=== PATIENT | male | born 1965 | race Caucasian/White ===

== ENCOUNTER 2017-07-21 17:35 | Observation (INO) | payer OTHER ==
[~2017-07-21] VITALS: Ht 182.9 cm; Wt 111.4 kg
[~2017-07-21 17:35] MED LIST: AMOXICILLIN500 MG PO; ASPIRIN81 MG PO; BACLOFEN10 MG PO; BUSPIRONE10 MG PO; LIPITOR40 MG PO; LOPRESSOR 550 MG/TAB PO; LYRICA25 MG PO; METHOCARBAM500 MG PO; PERCOCET 5/325M1 TAB PO; SIMVASTATIN40 MG PO; TRAMADOL HCL50 MG PO; ZESTRIL10 MG PO
--- NOTE | 2017-07-21 17:35 | NUR ---
PT TO ROOM 14 VIA EMS. PT ABLE TO TRANSFER TO ER STRETCHER WITHOUT ASSIST.
[2017-07-21 17:53] LABS: HEMATOCRIT 43.1 % (39.0-50.0); HEMOGLOBIN 14.8 g/dl (14.0-18.0); IMMATURE GRANULOCYTES 0.3 % (0.0-1.0); MEAN CELL VOLUME 93.5 fL CALC (80.0-100.0); MEAN CORPUSCULAR HGB 32.1 pG CALC (26.0-32.0); MEAN CORPUSCULAR HGB CONC 34.3 g/L CALC (32.0-36.0); NEUT# 4.31 thou/uL (1.82-7.42); RED BLOOD COUNT 4.61 mill/uL (4.70-6.10); RED CELL DISTRI WIDTH 13.5 % (11.5-15.5)
[2017-07-21 18:08] LABS: ANION GAP 16 (6-22 (CALC)); BUN 14 mg/dL (9-20); BUN/CREATININE RATIO 16 (12-20 (CALC)); CARBON DIOXIDE 23 mmol/l (22-30); CHLORIDE 105 mmol/l (95-108); CREATININE 0.9 mg/dL (0.7-1.3); GFR > 60 ML/MIN (>=60 (CALC)); GFR FOR AFR.AMER. > 60 ML/MIN (>=60 (CALC)); POTASSIUM 4.2 mmol/l (3.5-5.1); SODIUM 139 mmol/l (137-146)
[2017-07-21] MEDS ORDERED: SERTRALINE25 MG PO (19:09)
[2017-07-21] MEDS ORDERED: SEROQUEL25 MG PO (19:09)
--- NOTE | 2017-07-21 19:15 | NUR ---
PT AWARE OF PENDING ADMISSION, PROVIDED SANDWICH. NO COMPLAINTS OF CHEST PAIN OR SHORTNESS OF BREATH.
--- NOTE | 2017-07-21 19:39 | NUR ---
PT TAKEN TO ROOM 271 WITHOUT INCIDENT, REPORT WAS TO NADER.
[2017-07-21 20:00] VITALS: BP 115/69; BP 124/79
--- NOTE | 2017-07-21 20:00 | NUR ---
PT.ARRIVED TO THE FLOOR VIA WC ACCOMPANIED BY [facility]ALEARN OF THE ED. PT.APPEARS TO BE IN STABLE CONDITION, SELF AMBULATED TO STANDING SCALE AND TO BED. PT.IS WALKING AROUND THE ROOM AT THIS TIME AND REPORTS THAT HE HAS A HISTORY OF FALLS STATING THAT HIS "KNEES AND LEGS JUST GIVE OUT W/OUT NOTICE." I EXPLAINED TO THE PT.THAT WE NEED HIM TO CALL IF HE NEEDS TO AMBULATE FOR FALL PRECAUTIONS. HE REPORTS THAT HE NEEDS TO STAND AND MOVE AROUND AT TIMES FOR COMFORT OF BACK AND LEGS. I INSTRUCTED PT.TO CALL IF HE FEELS HE NEEDS TO GET UP. PT.ASSESSED, V/S ASSESSED AND ORIENTED TO ROOM,CALL SYSTEM, LIGHTS, TV AND BED. PROVIDED SNACK REQUESTED AND WATER PO. CALL LIGHT AT SIDE.
--- NOTE | 2017-07-21 22:16 | NUR ---
ENTERED ROOM TO ADMINISTER MEDICATIONS ORDERED AND PT.WAS POINTING TO HIS LEFT ARM. HE WAS BLEEDING FROM HIS IV SITE. I PROCEEDED TO CLEAN IT UP AND REDRESS THE SITE, IT WAS A LOOSE HUB ONLY. PT.WAS INSTRUCTED TO CALL IF HE HAD ANY FURTHER TROUBLE WITH IT OR NOTICED ANYMORE BLEEDING FROM SITE. MEDICATIONS ADMINISTERED ORDERS PROVIDE. DENIES ANY OTHER NEEDS AT THIS TIME. CALL LIGHT W/IN REACH. DENIES ANY PAIN, NO S/S OF DISTRESS.
--- NOTE | 2017-07-21 23:27 | NUR ---
PT.CALLED TO ASK FOR FOOD AND COKE/SNACK PROVIDED.
[2017-07-22] VITALS: BP 100/64
[2017-07-22 04:00] VITALS: BP 100/63
--- NOTE | 2017-07-22 04:00 | NUR ---
PT.AWOKE TO OUR VOICES UPON ENTERING ROOM. PT.APPEARED TO BE SLEEPING. V/S ASSESSED AND PT.ASSISTED TO RESTROOM AND BACK TO BED. PT.DENIES ANY PAIN OR NEEDS AT THIS TIME. CALL LIGHT W/IN REACH
--- NOTE | 2017-07-22 04:15 | NUR ---
PT.AWOKE TO OUR ENTERING THE ROOM. ASSISTED PT.TO RESTROOM AND BACK TO BED. V/S ASSESSED. PT.DENIES ANY OTHER NEEDS AT THIS TIME. CALL LIGHT W/IN REACH
--- NOTE | 2017-07-22 07:05 | NUR ---
REPORT RECEIVED FROM CAIT DOE;PT APPEARS TO BE SLEEPING IN RIGHT SIDE LAYING POSITION;RESPIRATIONS EVEN AND UNLABORED ON RA;NO S/S OF DISTRESS NOTED;TELE MONITOR IN PLACE;FALL PRECAUTIONS;BED IN THE LOWEST POSITION WITH CALL LIGHT IN REACH;WILL CONTINUE TO MONITOR
[2017-07-22 08:24] VITALS: BP 93/66
--- NOTE | 2017-07-22 08:30 | NUR ---
PT RESTING IN SUPINE POSITION;VS OBTAINED AND ASSESSMENT COMPLETED;RESPIRATIONS EVEN AND UNLABORED ON RA,CLEAR LUNG SOUNDS;ABDOMEN SOFT ON PALPATION AND ACTIVE IN ALL 4 QUADRANTS;STRONG PEDAL PULSES;SKIN INTACT;#20G TO RAC FLUSHED AND PATENT,SITE APPEARS HEALTHY;TELE MONITOR IN PLACE;PT DENIES ANY CHEST PAIN,PAIN SCALE AND REPORTING RE-EDUCATED;PT DENIES ANY CURRENT NEEDS AT THIS TIME;ENCOURAGED TO CALL FOR ASSISTANCE IF NEEDED;FALL PRECAUTIONS IN PLACE;ENCOURAGED TO CALL FOR ASSISTANCE IF NEEDED;CALL LIGHT IN REACH;WILL CONTINUE TO MONITOR
[2017-07-22 11:00] VITALS: BP 101/62
--- NOTE | 2017-07-22 11:19 | NUR ---
PT RESTING IN SUPINE POSITION WATCHING TV;DENIES ANY PAIN OR NEEDS;RESPIRATIONS REMAIN EVEN AND UNLABORED ON RA;TELE MONITOR IN PLACE;ENCOURAGED TO CALL FOR ASSISTANCE IF NEEDED;CALL LIGHT IN REACH;WILL CONTINUE TO MONITOR
--- NOTE | 2017-07-22 14:30 | NUR ---
PT AND WRITTER DICUSSED D/C;ALL QUESTIONS ANSWERED;IV SITE REMOVED WITH CATHETER INTACT;PT DENIES ANY CURRENT NEEDS AND REFUSES WC FOR D/C
--- NOTE | 2017-07-22 14:32 | NUR ---
Discharge instructions given. Patient verbalizes understanding of same. Discharged in stable condition via Ambulatory to Home with . All belongings sent with pt.
== END 2017-07-22 14:34 | disposition home or self-care (01) | DRG 313 ==
LOC: ED 17:35 → ED-I 18:07 → ED 18:07 → ED-I 18:27 → ED 18:40 → MS2 18:41
PROVIDERS: Family Medicine; ADMIT Internal Medicine; ATTEND Internal Medicine
DX: R07.9 Chest pain, unspecified (principal); I25.10 Atherosclerotic heart disease of native coronary artery without angina pectoris; E78.5 Hyperlipidemia, unspecified; I10 Essential (primary) hypertension; I25.2 Old myocardial infarction; F32.9 Major depressive disorder, single episode, unspecified; F41.9 Anxiety disorder, unspecified; F43.10 Post-traumatic stress disorder, unspecified; G89.29 Other chronic pain; M54.5 Low back pain; F17.210 Nicotine dependence, cigarettes, uncomplicated; Z95.5 Presence of coronary angioplasty implant and graft

== ENCOUNTER 2018-04-14 08:03 | Emergency (ER) | payer MEDICARE ==
[~2018-04-14] VITALS: Ht 182.9 cm; Wt 108.0 kg
[~2018-04-14 08:03] MED LIST changes: +SEROQUEL25 MG PO; +SERTRALINE25 MG PO
[2018-04-14 08:24] LABS: HEMATOCRIT 44.4 % (39.0-50.0); HEMOGLOBIN 15.2 g/dl (14.0-18.0); IMMATURE GRANULOCYTES 0.4 % (0.0-5.0); MEAN CELL VOLUME 91.9 fL CALC (80.0-100.0); MEAN CORPUSCULAR HGB 31.5 pG CALC (26.0-32.0); MEAN CORPUSCULAR HGB CONC 34.2 g/L CALC (32.0-36.0); NEUT# 3.21 thou/uL (1.82-7.42); RED BLOOD COUNT 4.83 mill/uL (4.70-6.10); RED CELL DISTRI WIDTH 13.4 % (11.5-15.5)
[2018-04-14 08:41] LABS: INTERNATIONAL NORMALIZED RATIO 0.9 RATIO (0.7-1.3); PROTHROMBIN TIME 9.8 SECONDS (9.0-12.5)
[2018-04-14 08:43] LABS: ANION GAP 15 (6-22 (CALC)); BUN 13 mg/dL (9-20); BUN/CREATININE RATIO 17 (12-20 (CALC)); CARBON DIOXIDE 25 mmol/l (22-30); CHLORIDE 104 mmol/l (95-108); CREATININE 0.8 mg/dL (0.7-1.3); GFR > 60 ML/MIN (>=60 (CALC)); GFR FOR AFR.AMER. > 60 ML/MIN (>=60 (CALC)); POTASSIUM 4.4 mmol/l (3.5-5.1); SODIUM 140 mmol/l (137-146)
[2018-04-14 09:32] VITALS: BP 147/87
== END 2018-04-14 09:34 | disposition short-term general hospital (02) ==
LOC: ED 08:03
PROVIDERS: Family Medicine
DX: I20.0 Unstable angina (principal); I10 Essential (primary) hypertension; F17.210 Nicotine dependence, cigarettes, uncomplicated; Z95.1 Presence of aortocoronary bypass graft; Z95.5 Presence of coronary angioplasty implant and graft; I25.2 Old myocardial infarction; M79.602 Pain in left arm; M79.601 Pain in right arm; R11.0 Nausea; R94.31 Abnormal electrocardiogram [ECG] [EKG]

== ENCOUNTER 2019-12-12 11:01 | Emergency (ER) | payer OTHER, MEDICARE ==
[~2019-12-12] VITALS: Ht 182.9 cm; Wt 105.0 kg
[2019-12-12 11:47] LABS: HEMATOCRIT 43.8 % (39.0-50.0); HEMOGLOBIN 14.4 g/dl (14.0-18.0); IMMATURE GRANULOCYTES 0.2 % (0.0-5.0); MEAN CELL VOLUME 92.2 fL CALC (80.0-100.0); MEAN CORPUSCULAR HGB 30.3 pG CALC (26.0-32.0); MEAN CORPUSCULAR HGB CONC 32.9 g/dL CAL (32.0-36.0); NEUT# 3.02 thou/uL (1.82-7.42); RED BLOOD COUNT 4.75 mill/uL (4.70-6.10); RED CELL DISTRI WIDTH 13.2 % (11.5-15.5)
[2019-12-12 12:02] LABS: ANION GAP 11 (6-22 (CALC)); BUN 9 mg/dL (9-20); BUN/CREATININE RATIO 16 (12-20 (CALC)); CARBON DIOXIDE 24 mmol/l (22-30); CHLORIDE 106 mmol/l (95-108); CREATININE 0.6 mg/dL (0.7-1.3); GFR > 60 ML/MIN (>=60 (CALC)); GFR FOR AFR.AMER. > 60 ML/MIN (>=60 (CALC)); POTASSIUM 4.1 mmol/l (3.5-5.1); SODIUM 136 mmol/l (137-146)
[2019-12-12] MEDS ORDERED: LIPITOR80 M1 PO (13:03)
[2019-12-12] MEDS ORDERED: OLMESARTAN MEDO20 MG (13:04)
[2019-12-12 14:13] VITALS: BP 114/67
== END 2019-12-12 14:15 | disposition short-term general hospital (02) | DRG 311 ==
LOC: ED 11:01
PROVIDERS: Family Medicine
DX: I20.0 Unstable angina (principal); I10 Essential (primary) hypertension; I25.2 Old myocardial infarction; F17.200 Nicotine dependence, unspecified, uncomplicated; Z95.5 Presence of coronary angioplasty implant and graft
CPT/HCPCS: J1644

== ENCOUNTER 2020-09-08 12:10 | Emergency (ER) | payer OTHER, MEDICARE ==
[~2020-09-08] VITALS: Ht 182.9 cm; Wt 113.0 kg
[~2020-09-08 12:10] MED LIST changes: +LIPITOR80 M1 PO; +OLMESARTAN MEDO20 MG
[2020-09-08] MEDS ORDERED: LISINOPRIL2.5 MG PO (12:42)
[2020-09-08] MEDS ORDERED: METOPROL TAR25 M1 PO (12:43)
[2020-09-08] MEDS ORDERED: LIPITOR40 M1 PO (12:43)
[2020-09-08] MEDS ORDERED: ASPIRIN81 MG PO (12:43)
[2020-09-08] MEDS ORDERED: ULTRAM50 M1 PO (13:05)
[2020-09-08 13:39] VITALS: BP 135/83
== END 2020-09-08 13:40 | disposition home or self-care (01) | DRG 563 ==
LOC: ED 12:10
DX: S53.402A Unspecified sprain of left elbow, initial encounter (principal); I10 Essential (primary) hypertension; I25.2 Old myocardial infarction; F17.200 Nicotine dependence, unspecified, uncomplicated; X50.9XXA Other and unspecified overexertion or strenuous movements or postures, initial encounter; Z95.5 Presence of coronary angioplasty implant and graft